=== PATIENT | female | born 1985 | race American Indian/Alaskan Native ===

== ENCOUNTER 2020-10-09 12:05 | Outpatient (CLI) | payer OTHER | END 2020-10-09 13:07 | disposition home or self-care (01) | LOC: NST 12:05 | PROVIDERS: ATTEND Obstetrics & Gynecology | DX: Z34.83 Encounter for supervision of other normal pregnancy, third trimester (principal) ==

== ENCOUNTER 2020-12-11 14:00 | Inpatient (IN) | payer OTHER ==
[~2020-12-11] VITALS: Ht 152.4 cm; Wt 56.2 kg
[2020-12-28] MEDS ORDERED: ONDANSETRON HCL8 MG (08:05)
== END 2020-12-28 11:22 | disposition home or self-care (01) | DRG 807 ==
LOC: LDR 12-26 12:10 → SURG-SUITE 12-26 12:12 → SURH 01-01 14:00
PROVIDERS: ADMIT Obstetrics & Gynecology Maternal & Fetal Medicine; ATTEND Obstetrics & Gynecology Maternal & Fetal Medicine
PROC: 10E0XZZ Delivery of Products of Conception, External Approach (ICD-10-PCS; principal; 2020-12-26)
PROC: 10907ZC Drainage of Amniotic Fluid, Therapeutic from Products of Conception, Via Natural or Artificial Opening (ICD-10-PCS; 2020-12-26)
PROC: 4A1HXFZ Monitoring of Products of Conception, Cardiac Rhythm, External Approach (ICD-10-PCS; 2020-12-26)
DX: O80 Encounter for full-term uncomplicated delivery (principal); Z37.0 Single live birth; Z3A.38 38 weeks gestation of pregnancy; Z20.822 Contact with and (suspected) exposure to COVID-19

== ENCOUNTER 2023-11-22 10:32 | Emergency (ER) | payer OTHER ==
[~2023-11-22] VITALS: Ht 167.6 cm; Wt 53.1 kg
[~2023-11-22 10:32] MED LIST: ONDANSETRON HCL8 MG
[2023-11-22 11:54] LABS: HEMATOCRIT 42.1 % (36.0-45.00); HEMOGLOBIN 14.3 g/dL (12.0-15.00); MEAN CELL VOLUME 86.6 fL (80.00-100.00); MEAN CORPUSCULAR HEMOGLOBIN 29.4 pg (27.00-32.0); MEAN CORPUSCULAR HGB CONC 33.9 g/dl (32.0-36.0); PLATELET COUNT 283 K/uL (150-450); RED BLOOD COUNT 4.86 M/uL (4.00-6.00); RED CELL DISTRIBUTION WIDTH 14.9 % (11.5-14.5)
== END 2023-11-22 14:44 | disposition home or self-care (01) ==
LOC: ER 10:33
PROVIDERS: General Practice
DX: Z34.90 Encounter for supervision of normal pregnancy, unspecified, unspecified trimester (principal); N93.9 Abnormal uterine and vaginal bleeding, unspecified; R53.81 Other malaise

== ENCOUNTER 2024-03-30 13:28 | Inpatient (IN) | payer OTHER ==
[~2024-03-30] VITALS: Ht 167.6 cm; Wt 57.6 kg
[2024-03-30 12:26] VITALS: BP 99/64
[2024-03-30] MEDS ORDERED: PRENATAL TABLE1 EAC1 PO (13:34)
[2024-03-30] MEDS ORDERED: MAGNESIUM SULFATE IN WATER 4 GM/100 ML PIGGYBACK IV SCH (14:00)
[2024-03-30] MEDS ORDERED: RINGERS SOLUTION,LACTATED 1,000 ML IV SCH (14:00)
[2024-03-30] MEDS ORDERED: MAGNESIUM SULFATE IN WATER 500 ML IV SCH (14:00)
[2024-03-30 14:24] LABS: HEMATOCRIT 32.8 % (36.0-45.00); MEAN CELL VOLUME 91.5 fL (80.00-100.00); MEAN CORPUSCULAR HEMOGLOBIN 30.8 pg (27.00-32.0); MEAN CORPUSCULAR HGB CONC 33.7 g/dl (32.0-36.0); PLATELET COUNT 237 K/uL (150-450); RED BLOOD COUNT 3.58 M/uL (4.00-6.00)
[2024-03-30 14:26] LABS: PH,URINE 6.5 (5.0-8.0); URINE APPEARANCE Clear; URINE BILIRRUBIN Negative (NEGATIVE); URINE BLOOD Negative; URINE COLOR Yellow; URINE GLUCOSE Negative (NEGATIVE); URINE KETONE Negative (NEGATIVE); URINE LEUKOCYTE Negative; URINE NITRATE Negative; URINE PROTEIN Negative (NEGATIVE); URINE UROBILINOGEN 0.2 E.U./dl
[2024-03-30 14:30] LABS: URINE BACTERIA 35.2 uL (0.0-1933)
[2024-03-30 14:32] LABS: URINE CAST 0.15 uL (0.0-1.40); URINE EPITHELIAL CELLS 1.2 uL (0.0-38.8); URINE RBC 0.7 uL (0.0-20.8)
[2024-03-30 14:47] LABS: INR < 0.93; PARTIAL THROMBOPLASTIN TIME 25.3 SECONDS (22.0-34.0); PROTHROMBIN TIME 10.2 SECONDS (9.0-11.5)
[2024-03-30 14:50] LABS: ALBUMIN 2.8 gm/dL (3.4-5.0); BILIRUBIN TOTAL 0.3 mg/dL (0.3-1.2); CALCIUM 9.1 mg/dL (8.5-10.1); CREATININE SERUM 0.5 mg/dL (0.55-1.02); GFR 139.6; GLOBULINA 3.7 G/DL (2.4-3.5); POTASSIUM 4.07 mEq/L (3.5-5.1); TOTAL PROTEIN 6.5 gm/dL (6.4-8.2)
[2024-03-30 15:21] VITALS: BP 94/63
[2024-03-30] MEDS ORDERED: BETAMETHASONE ACETATE,SOD PHOS 30 MG/5 ML ML IM SCH (17:00)
[2024-03-30 19:34] VITALS: BP 95/65
[2024-03-30 23:47] VITALS: BP 89/59
[2024-03-31 03:58] VITALS: BP 75/46
[2024-03-31] MEDS ORDERED: ACETAMINOPHEN 500 MG GEL..CAP PO PRN ×2 (04:30→11:45)
[2024-03-31 07:35] VITALS: BP 94/53
[2024-03-31 13:15] VITALS: BP 110/55
[2024-03-31 13:17] VITALS: BP 100/60
[2024-03-31 18:11] VITALS: BP 100/60
[2024-03-31] MEDS ORDERED: NIFEDIPINE 60 MG TAB.SA.OSM PO SCH (21:00)
[2024-03-31] MEDS ORDERED: TERBUTALINE SULFATE 1 MG/ML AMPUL SUBCUTANEO ONE (23:00)
[2024-04-01 02:01] VITALS: BP 96/61
[2024-04-01 08:00] VITALS: BP 91/51
[2024-04-01] MEDS ORDERED: PNV,CALCIUM 72/IRON/FOLIC ACID 1 TAB TABLET PO SCH (12:00)
[2024-04-01 16:00] VITALS: BP 93/60
[2024-04-02 00:50] VITALS: BP 122/73
[2024-04-02 08:38] VITALS: BP 95/59
== END 2024-04-02 12:06 | disposition home or self-care (01) | DRG 833 ==
LOC: OB/GYN 13:28 → LDR 13:28 → OB/GYN 03-31 10:11
PROVIDERS: ADMIT Obstetrics & Gynecology; ATTEND Obstetrics & Gynecology
PROC: 4A1HXCZ Monitoring of Products of Conception, Cardiac Rate, External Approach (ICD-10-PCS; principal; 2024-03-30)
PROC: BY4CZZZ Ultrasonography of Second Trimester, Single Fetus (ICD-10-PCS; 2024-04-01)
PROC: BU4CZZZ Ultrasonography of Uterus and Ovaries (ICD-10-PCS; 2024-04-01)
DX: O60.02 Preterm labor without delivery, second trimester (principal); O26.842 Uterine size-date discrepancy, second trimester; Z3A.25 25 weeks gestation of pregnancy; Z20.822 Contact with and (suspected) exposure to COVID-19

== ENCOUNTER 2024-05-06 10:58 | Outpatient (CLI) | payer OTHER ==
[~2024-05-06 10:58] MED LIST changes: +PRENATAL TABLE1 EAC1 PO
== END 2024-05-06 13:38 | disposition home or self-care (01) ==
LOC: NST 10:58
PROVIDERS: ATTEND Obstetrics & Gynecology Maternal & Fetal Medicine
DX: Z34.83 Encounter for supervision of other normal pregnancy, third trimester (principal)

== ENCOUNTER 2024-05-08 22:03 | Outpatient (CLI) | payer OTHER ==
[~2024-05-08] VITALS: Ht 167.6 cm; Wt 58.5 kg
[2024-05-08 21:04] VITALS: BP 103/66
[2024-05-08] MEDS ORDERED: NIFEDIPINE ER30 M1 PO (22:05)
[2024-05-08 22:21] VITALS: BP 103/66
== END 2024-05-08 22:22 | disposition home or self-care (01) ==
LOC: OBS/DEL 22:03
PROVIDERS: ATTEND Obstetrics & Gynecology Maternal & Fetal Medicine
DX: O26.893 Other specified pregnancy related conditions, third trimester (principal); S30.1XXA Contusion of abdominal wall, initial encounter; Z3A.30 30 weeks gestation of pregnancy

== ENCOUNTER 2024-06-26 10:58 | Outpatient (CLI) | payer OTHER ==
[~2024-06-26 10:58] MED LIST changes: +NIFEDIPINE ER30 M1 PO
== END 2024-06-26 12:58 | disposition home or self-care (01) ==
LOC: NST 10:58
PROVIDERS: ATTEND Obstetrics & Gynecology
DX: Z3A.37 37 weeks gestation of pregnancy (principal)

== ENCOUNTER 2024-06-26 13:08 | Inpatient (IN) | payer OTHER ==
[~2024-06-26] VITALS: Ht 167.6 cm; Wt 60.8 kg
[2024-07-06 16:38] VITALS: BP 91/68
[2024-07-06] MEDS ORDERED: AMPICILLIN SODIUM 1,000 MG VIAL IV SCH (17:42)
[2024-07-06] MEDS ORDERED: AMPICILLIN SODIUM 2,000 MG VIAL IV ONE (17:45)
[2024-07-06] MEDS ORDERED: RINGERS SOLUTION,LACTATED 1,000 ML IV SCH (17:45)
[2024-07-06 18:02] LABS: HEMATOCRIT 34.8 % (36.0-45.00); HEMOGLOBIN 11.8 g/dL (12.0-15.00); MEAN CELL VOLUME 91.5 fL (80.00-100.00); MEAN CORPUSCULAR HGB CONC 33.8 g/dl (32.0-36.0); PLATELET COUNT 240 K/uL (150-450); RED BLOOD COUNT 3.81 M/uL (4.00-6.00); RED CELL DISTRIBUTION WIDTH 15.4 % (11.5-14.5)
[2024-07-06 18:26] LABS: INR < 0.93; PARTIAL THROMBOPLASTIN TIME 26.2 SECONDS (22.0-34.0); PROTHROMBIN TIME 9.8 SECONDS (9.0-11.5)
[2024-07-06 18:39] LABS: ALBUMIN 2.8 gm/dL (3.4-5.0); BILIRUBIN TOTAL 0.5 mg/dL (0.3-1.2); CALCIUM 9.5 mg/dL (8.5-10.1); CREATININE SERUM 0.84 mg/dL (0.55-1.02); GFR 76.72; GLOBULINA 4.3 G/DL (2.4-3.5); POTASSIUM 4.66 mEq/L (3.5-5.1); TOTAL PROTEIN 7.1 gm/dL (6.4-8.2)
[2024-07-06 19:15] VITALS: BP 104/72
[2024-07-06 23:18] VITALS: BP 108/76
[2024-07-06] MEDS ORDERED: MORPHINE SULFATE 4 MG/ML VIAL IV PRN (23:45)
[2024-07-07] VITALS (9 sets, daily range): BP systolic 94–118; BP diastolic 58–70
[2024-07-07] MEDS ORDERED: ERYTHROMYCIN BASE OPHT 1GM EACH TUBE OP ONE (00:12)
[2024-07-07] MEDS ORDERED: LIDOCAINE HCL 1% 10ML VIAL ONE (00:13)
[2024-07-07] MEDS ORDERED: OXYTOCIN 20 UNITS/1000ML RL PIGGYBAG IV ONE (00:13)
[2024-07-07] MEDS ORDERED: CHLORHEXIDINE GLUCONATE 120 ML BOTTLE TOP ONE (00:13)
[2024-07-07] MEDS ORDERED: OXYTOCIN 500 ML IV SCH (00:45)
[2024-07-07] MEDS ORDERED: DOCUSATE SODIUM 100MG CAP PO SCH (04:12)
[2024-07-07] MEDS ORDERED: OXYTOCIN 1,000 ML IV ONE (04:15)
[2024-07-07] MEDS ORDERED: CHLORHEXIDINE GLUCONATE 120 ML BOTTLE TOP SCH (04:15)
[2024-07-07] MEDS ORDERED: IBUprofen 400 MG TABLET PO PRN (04:15)
[2024-07-07] MEDS ORDERED: PNV,CALCIUM 72/IRON/FOLIC ACID 1 TAB TABLET PO SCH (09:00)
[2024-07-07] MEDS ORDERED: CYCLOBENZAPRINE HCL 5 MG TABLET PO PRN (18:30)
[2024-07-07] MEDS ORDERED: ACETAMINOPHEN 500 MG GEL..CAP PO PRN (18:45)
[2024-07-08] VITALS: BP 85/55
[2024-07-08] MEDS ORDERED: IBUprofen 600 MG TABLET PO SCH
[2024-07-08 08:00] VITALS: BP 103/69
[2024-07-08 16:06] VITALS: BP 105/68
[2024-07-08 23:32] VITALS: BP 90/60
[2024-07-09 08:00] VITALS: BP 101/71
[2024-07-09 16:45] VITALS: BP 100/65
== END 2024-07-09 18:32 | disposition home or self-care (01) | DRG 807 ==
LOC: OB/GYN 07-06 17:38 → LDR 07-06 17:38 → OB/GYN 07-07 05:40 → SURH 07-13 13:45
PROVIDERS: Obstetrics & Gynecology Gynecology; ADMIT Obstetrics & Gynecology; ATTEND Obstetrics & Gynecology
PROC: 4A1HXCZ Monitoring of Products of Conception, Cardiac Rate, External Approach (ICD-10-PCS; 2024-07-06)
PROC: 10E0XZZ Delivery of Products of Conception, External Approach (ICD-10-PCS; principal; 2024-07-07)
DX: O80 Encounter for full-term uncomplicated delivery (principal); Z37.0 Single live birth; Z3A.39 39 weeks gestation of pregnancy

== ENCOUNTER 2024-06-28 11:29 | Outpatient (CLI) | payer OTHER | END 2024-06-28 12:14 | disposition home or self-care (01) | LOC: NST 11:29 | PROVIDERS: ATTEND Obstetrics & Gynecology | DX: Z34.83 Encounter for supervision of other normal pregnancy, third trimester (principal) ==